=== PATIENT | female | born 1995 | race Two or more races ===

== ENCOUNTER → 2018-02-06 11:17 | Outpatient (CLI) | payer SELFPAY ==
[2018-02-06 12:00] LABS: Basophils % 0.4 % (0.1-2.0); Eosinophils # 0.3 K/mm3 (0.0-0.4); Eosinophils % 3.6 % (0.1-12.0); Hematocrit 40.2 % (37.0-47.0); Hemoglobin 13.5 g/dL (12.2-16.2); Lymphocytes # 1.7 K/mm3 (0.7-4.5); Lymphocytes % 17.7 K/mm3 (10-50); Mean Corpuscular HGB Conc 33.7 g/dL (31.8-35.4); Mean Corpuscular Hemoglobin 28.9 pg (27.0-31.2); Mean Corpuscular Volume 85.8 fl (81-99); Mean Platelet Volume 7.3 fl (7.4-10.4); Monocytes # 0.3 K/mm3 (0.1-1.0); Monocytes % 3.4 % (1.7-9.3); Neutrophils # 7.1 K/mm3 (1.8-7.8); Platelet Count 356 K/mm3 (142-424); Red Blood Count 4.69 M/mm3 (4.20-5.40); Red Cell Distribution Width 13.4 % (11.5-17.5); White Blood Count 9.4 K/mm3 (4.5-13.0)
[2018-02-06 12:06] LABS: Amphetamine/Metha Screen,Urine Negative ng/mL (<1000); Barbiturates Screen,Urine Negative ng/mL (<200); Benzodiazepines Screen,Urine Negative ng/mL (<200); Cannabinoid Screen,Urine Negative ng/mL (<50); Cocaine Screen,Urine Negative ng/mL (<300); Methadone Screen,Urine Negative ng/mL (<300); Opiate Screen,Urine Negative ng/mL (<300); Phencyclidine Screen,Urine Negative ng/mL (<25)
[2018-02-06 13:02] LABS: Thyroid Stimulating Hormone 2.18 uIU/ml (0.516-4.13)
[2018-02-07 08:23] LABS: HIV Screen 4th Generation wRfx Non Reactive (Non Reactive)
[2018-02-07 18:43] LABS: Hepatitis B Surface Antigen Negative (Negative); Rapid Plasma Reagin Ab Titer Non Reactive (NonRea<1:1); Rubella Antibodies, IgG 2.48 index (Immune >0.99)
== END ==
PROVIDERS: PCP Nurse Practitioner Family; Visit Provider Obstetrics & Gynecology
DX: Z34.90 Encounter for supervision of normal pregnancy, unspecified, unspecified trimester (principal)
CPT/HCPCS: 36415; 80305; 84443; 85025; 86592; 86703; 86762; 86850; 87340; G0432

== ENCOUNTER → 2018-03-16 15:19 | Outpatient (CLI) | payer SELFPAY ==
[2018-03-19 19:11] LABS: AFP Value 20.6 ng/mL (.); DIA Value 205.32 pg/mL (.); DSR (Second Trimester) 1 IN 10000 (.); Gestat. Age Based On As provided (.); OSBR Risk 1 IN 10000 (.); Results Report (.); hCG MoM 0.52 (.); hCG Value 27710 mIU/mL (.); uE3 MoM 1.67 (.); uE3 Value 0.93 ng/mL (.)
== END ==
PROVIDERS: PCP Nurse Practitioner Family; Visit Provider Obstetrics & Gynecology
DX: Z34.90 Encounter for supervision of normal pregnancy, unspecified, unspecified trimester (principal)
CPT/HCPCS: 36415; 82106

== ENCOUNTER → 2018-05-19 16:50 | Outpatient (CLI) | payer SELFPAY ==
[2018-05-19 18:12] LABS: Glucose 1 Hour 119 mg/dL (74-106)
== END ==
PROVIDERS: Visit Provider Obstetrics & Gynecology
DX: Z34.90 Encounter for supervision of normal pregnancy, unspecified, unspecified trimester (principal)
CPT/HCPCS: 36415; 82951

== ENCOUNTER → 2018-07-28 17:59 | Outpatient (CLI) | payer OTHER, SELFPAY | PROVIDERS: Visit Provider Obstetrics & Gynecology | DX: Z34.90 Encounter for supervision of normal pregnancy, unspecified, unspecified trimester (principal) | CPT/HCPCS: 86403 ==

== ENCOUNTER 2018-08-30 06:50 | Outpatient (CLI) | payer BC, SELFPAY ==
[2018-08-30 06:56] VITALS: BMI 27.4
[2018-08-30 07:04] LABS: Microscopic, Urine URINE MICROSCOPIC (MICROSCOPIC)
[2018-08-30 07:06] LABS: Appearance,Urine CLEAR (Clear); Bilirubin,Urine Negative (Negative); Blood, Urine 1+ (Negative); Color,Urine YELLOW (Yellow); Glucose,Urine (UA) Negative (Negative); Ketones,Urine Negative (Negative); Leukocyte Esterase,Urine Negative (Negative); Nitrate,Urine Negative (Negative); Protein,Urine Negative (Negative); Urobilinogen,Urine 0.2 EU/dl (0.2)
[2018-08-30 07:10] LABS: Amorphous Sediment,Urine Trace /lpf
[2018-08-30 07:17] VITALS: BP 129/74; PULSE 68; RESP 18; TEMP 36.6; O2SAT 97; BMI 25.8
[2018-08-30 08:47] LABS: Basophils % 0.3 % (0.1-2.0); Eosinophils # 0.1 K/mm3 (0.0-0.4); Eosinophils % 0.8 % (0.1-12.0); Hematocrit 38.6 % (37.0-47.0); Hemoglobin 13.2 g/dL (12.2-16.2); Lymphocytes % 18.5 % (10-50); Mean Corpuscular HGB Conc 34.4 g/dL (31.8-35.4); Mean Corpuscular Hemoglobin 28.9 pg (27.0-31.2); Mean Corpuscular Volume 84.1 fl (81-99); Mean Platelet Volume 6.9 fl (7.4-10.4); Monocytes # 0.6 K/mm3 (0.1-1.0); Monocytes % 5.4 % (1.7-9.3); Neutrophils # 7.9 K/mm3 (1.8-7.8); Platelet Count 298 K/mm3 (142-424); Red Blood Count 4.58 M/mm3 (4.20-5.40); Red Cell Distribution Width 14.8 % (11.5-17.5); White Blood Count 10.6 K/mm3 (4.8-10.8)
== END 2018-08-30 10:25 | disposition home or self-care (01) ==
LOC: OBOUT 06:52 → OB 06:52
PROVIDERS: PCP Family Medicine; Visit Provider Nurse Practitioner Obstetrics & Gynecology
DX: O60.03 Preterm labor without delivery, third trimester (principal); Z3A.39 39 weeks gestation of pregnancy
CPT/HCPCS: 59025; 81001; 85025; 86850; 96360

== ENCOUNTER 2018-08-30 23:34 | Inpatient (IN) ==
--- NOTE | 2018-08-31 06:36 | Progress Note ---
Internal Medicine - PN: Subj *Date: 08/31/18 *Time: 06:35 Interval history: This 23-year-old 1 para 0 AB 0 female was admitted around midnight with regular contractions and spontaneous rupture of membranes at home (amniosure positive). She has been laboring well, and her cervix is now completely effaced, 6-7 cm, with the presenting vertex at 0 station. An internal monitor has been placed. The patient does not wish an epidural at this time. Plan is for vaginal delivery. Exam Vital signs and Labs for Last 24 Hours: Temp Pulse Resp BP Pulse Ox 97.9 F 72 18 136/72 98 08/31/18 01:38 08/31/18 01:38 08/31/18 01:38 08/31/18 01:38 08/31/18 01:38 Laboratory Results - last 24 hr 08/30/18 23:50: Membrane Rupture Positive A I & O for Last 24 hours: Intake & Output 08/28/18 08/29/18 08/30/18 08/31/18 10:59 10:59 11:59 11:59 Weight 170 lb
--- NOTE | 2018-08-31 08:51 | Progress Note ---
Internal Medicine - PN: Subj *Date: 08/31/18 *Time: 08:51 Interval history: Cervix now completely effaced, 8 cm, with the presenting vertex at 0 station. There is been a few subtle decelerations. If they continue, will do an amnioinfusion. Exam Vital signs and Labs for Last 24 Hours: Temp Pulse Resp BP Pulse Ox 97.9 F 72 18 136/72 98 08/31/18 01:38 08/31/18 01:38 08/31/18 01:38 08/31/18 01:38 08/31/18 01:38 Laboratory Results - last 24 hr 08/30/18 23:50: Membrane Rupture Positive A I & O for Last 24 hours: Intake & Output 08/28/18 08/29/18 08/30/18 08/31/18 10:59 10:59 11:59 11:59 Weight 170 lb
--- NOTE | 2018-08-31 10:23 | Progress Note ---
Internal Medicine - PN: Subj *Date: 08/31/18 *Time: 10:23 Interval history: Cervix now completely effaced, 9 cm, with the presenting vertex at 0 station. Exam Vital signs and Labs for Last 24 Hours: Temp Pulse Resp BP Pulse Ox 98.4 F 70 18 123/57 L 100 08/31/18 08:00 08/31/18 08:00 08/31/18 08:00 08/31/18 08:00 08/31/18 08:00 Laboratory Results - last 24 hr 08/30/18 23:50: Membrane Rupture Positive A I & O for Last 24 hours: Intake & Output 08/28/18 08/29/18 08/30/18 08/31/18 10:59 10:59 11:59 11:59 Weight 170 lb
--- NOTE | 2018-08-31 15:13 | Procedure Note ---
- Delivery Note Delivery Date:: 08/31/18 Delivery Time:: 14:51 Anesthesia Type: None Was labor medically induced?: No Infant delivered prior to 39 weeks?: No Infant Gender: Male at 1 minute: 7 at 5 minutes: 9 Suction Catheter Type: Helen AF:: clear LAC or MLE?: MLE Delivery Procedure:: This 23-year-old 1, now para 1 female was admitted at 39-2/7 weeks with spontaneous rupture of membranes at home and irregular contractions. Her labor progressed gradually until at 9+ centimeters she required a small amount of IV Pitocin because of failure to progress. She then went steadily to completion at 1400 hrs. and delivered spontaneously, over a midline episiotomy, at 1451. There was no nuchal cord, nor was there any meconium. The baby's nasal and oropharynx were bulb suction, and the baby cried spontaneously on the perineum, as was delivered. The cord was clamped and cut, 3 vessels were noted to be within the cord, and cord blood was obtained. The cord pH is pending. The baby was handed into the arms of the attending RN, who assigned Apgars of 7 at 1 minute and 9 at 5 minutes to this 6 pound 2 ounce, 19.25 inch male , born at 1451. The baby was recovered in excellent condition. The placenta delivered spontaneously, intact, at 1454, making the total time in labor 13 hours 54 minutes. The uterus was inspected and was felt to be clean, and was involuting well, with IV Pitocin running. There were no lacerations or extensions of the midline episiotomy, which was closed in the usual fashion, in layers, with 2-0 Vicryl (after local infusion of 10 cc of 1% lidocaine). The rectovaginal septum was inspected and was in intact at the close of the procedure. The sponge and needle counts correct. The estimated blood loss was 350 cc. The patient tolerated the procedure well, and was recovered in excellent condition. Her blood type was O+. Her rubella titer is immune. She plans to breast-feed. Placental Delivery Description: Spontaneous
--- NOTE | 2018-08-31 16:22 | Progress Note ---
Internal Medicine - PN: Subj *Date: 08/31/18 *Time: 16:21 Interval history: Date of delivery. Vital signs stable. Lochia normal. Uterine fundus involuting well. Perineum intact. Impression: Stable. Exam Vital signs and Labs for Last 24 Hours: Temp Pulse Resp BP Pulse Ox 98.4 F 70 18 123/57 L 100 08/31/18 08:00 08/31/18 08:00 08/31/18 08:00 08/31/18 08:00 08/31/18 08:00 Laboratory Results - last 24 hr 08/30/18 23:50: Membrane Rupture Positive A 08/31/18 15:09: Cord ABG pH 7.28 L I & O for Last 24 hours: Intake & Output 08/29/18 08/30/18 08/31/18 09/01/18 10:59 11:59 11:59 11:59 Weight 170 lb
[2018-09-01 05:52] LABS: Hematocrit 32.5 % (37.0-47.0); Hemoglobin 11.2 g/dL (12.2-16.2)
--- NOTE | 2018-09-01 07:20 | Progress Note ---
Internal Medicine - PN: Subj *Date: 09/01/18 *Time: 07:19 Interval history: This is day #1. The patient is afebrile. Vital signs stable. Lochia normal. Uterine fundus involuting well. Abdomen soft. Nursing well. Episiotomy healing well. The patient does not wish the baby to be circumcised. Hemoglobin 11.2 g, but clinically stable. Impression: Stable. Exam Vital signs and Labs for Last 24 Hours: Temp Pulse Resp BP Pulse Ox 98.4 F 70 18 123/57 L 100 08/31/18 08:00 08/31/18 08:00 08/31/18 08:00 08/31/18 08:00 08/31/18 08:00 Laboratory Results - last 24 hr 08/31/18 15:09: Cord ABG pH 7.28 L 09/01/18 05:25: Hgb 11.2 L, Hct 32.5 L I & O for Last 24 hours: Intake & Output 08/29/18 08/30/18 08/31/18 09/01/18 10:59 11:59 11:59 11:59 Weight 170 lb
[2018-09-01 20:55] VITALS: BP 109/58
--- NOTE | 2018-09-02 10:05 | Discharge Summary ---
General - General Admission date:: 08/31/18 Discharge date: 09/02/18 HPI HPI: She is a 23-year-old 1 now para 1 who is 39 and 2 weeks gestational age. She came in in active labor. Hospital Course Hospital Course: She progressed to full dilation and delivered spontaneously a liveborn male child at 2:51 PM in the afternoon of August 31, 2018. The baby was a liveborn male child weighing 6 pounds 2 ounces and was 19-1/4 inches long. He had Apgars of 7 at 1 minute and 9 at 5 minutes. She has done well and has remained afebrile throughout her hospitalization. She is eating and drinking and ambulate in. She is breast- feeding. She has O+ blood, she is rubella immune and was group B streptococcus negative. She is discharged home to follow-up with Dr. Pierson in 3 weeks time. She will continue with her vitamins and iron. Objective Vital signs: Temp Pulse Resp BP Pulse Ox 97.9 F 61 16 109/58 L 99 09/01/18 20:00 09/01/18 20:00 09/01/18 20:00 09/01/18 20:00 09/01/18 20:00 no acute distress DS: Diagnosis - Discharge Diagnosis (1) Normal delivery at term Status: Acute Discharge Plan - Patient Discharge Instructions ACTIVITY: No heavy lifting DIET: continue same diet Patient Instructions: DI for Hemorrhage, DI for Depression, [facility] Post Discharge Instructions - Follow up Plan Follow up with: Kavin Pierson MD [Staff Physician] - Disposition: Home, Self-Fci Medications: Home Medications Medication Instructions Recorded Confirmed Type vit 123-iron 28 mg-folic 1 cap PO DAILY 02/06/18 08/31/18 History acid 800 [id number] 235 mg capsule Prescriptions/Medication Reconciliation: Continue vit 123-iron 28 mg-folic acid 800 [id number] 235 mg capsule 1 cap PO DAILY
== END 2018-09-02 11:33 | disposition home or self-care (01) | DRG 807 ==
LOC: OBOUT 23:34 → OB 23:35
PROVIDERS: ADMIT Nurse Practitioner Obstetrics & Gynecology; ATTEND Obstetrics & Gynecology
CPT/HCPCS: C1758

== ENCOUNTER → 2019-02-01 15:18 | Outpatient (CLI) | payer BC, SELFPAY ==
--- NOTE | 2019-02-01 15:26 | US_ITS ---
US transvaginal HISTORY: Right lower quadrant pain, pelvic pain ORDERING PHYSICIAN: Kathia Beach APRN PATIENT AGE: 23 years Comparison: None FINDINGS: The uterus is 8 x 3.4 x 4.4 cm with a combined endometrial thickness of 12 mm. No uterine mass evident. The left ovary has an unremarkable appearance at 3 x 2 cm. The right ovary measures 3 x 2.5 cm and contains a 1.8 cm cyst. No cul-de-sac fluid. IMPRESSION: 1. Endometrial thickness upper limits of normal. 2. 18 mm right ovarian follicle otherwise negative pelvic ultrasound
== END ==
PROVIDERS: PCP Family Medicine; Visit Provider Nurse Practitioner Family
DX: R10.2 Pelvic and perineal pain (principal)
CPT/HCPCS: 76830

== ENCOUNTER → 2019-03-11 14:30 | Outpatient (CLI) | payer BC, SELFPAY ==
--- NOTE | 2019-03-11 14:34 | US_ITS ---
PROCEDURE: US TRANSVAGINAL CLINICAL INDICATION: PELVIC PAIN Right-sided pelvic pain COMPARISON: US TRANSVAGINAL from 02/01/2019 FINDINGS: The uterus is retroverted measuring 6 x 3 x 4.7 cm. Combined endometrial thickness is 5 mm. Right ovary is 3 x 2 cm. Left ovary is 2.6 x 1.6 cm. No adnexal mass. There is bilateral ovarian blood flow. No cul-de-sac fluid. IMPRESSION: Retroverted uterus otherwise negative pelvic ultrasound Dictated by: German Nix MD 03/11/2019 17:35 Electronically signed by German Nix MD in [facility] 03/11/2019 17:35
== END ==
PROVIDERS: PCP Family Medicine; Visit Provider Obstetrics & Gynecology
DX: R10.2 Pelvic and perineal pain (principal)
CPT/HCPCS: 76830

== ENCOUNTER → 2021-02-20 09:51 | Outpatient (CLI) | payer BC, SELFPAY ==
[2021-02-20 11:50] LABS: HCG,Quantitative 88965 mIU/ml (0-5.42)
== END ==
PROVIDERS: Visit Provider Nurse Practitioner Obstetrics & Gynecology
DX: N92.6 Irregular menstruation, unspecified (principal)
CPT/HCPCS: 36415; 84702

== ENCOUNTER → 2021-03-07 12:04 | Outpatient (CLI) | payer BC, SELFPAY ==
[2021-03-07 12:52] LABS: Basophils % 0.2 % (0.1-2.0); Eosinophils # 0.1 K/mm3 (0.0-0.4); Eosinophils % 0.8 % (0.1-12.0); Hematocrit 40.7 % (37.0-47.0); Hemoglobin 13.5 g/dL (12.2-16.2); Lymphocytes # 2.4 K/mm3 (0.7-4.5); Mean Corpuscular HGB Conc 33.2 g/dL (31.8-35.4); Mean Corpuscular Hemoglobin 29.7 pg (27.0-31.2); Mean Corpuscular Volume 89.3 fl (81-99); Mean Platelet Volume 7.2 fl (7.4-10.4); Monocytes # 0.5 K/mm3 (0.1-1.0); Monocytes % 3.8 % (1.7-9.3); Neutrophils # 8.9 K/mm3 (1.8-7.8); Neutrophils % 75.1 % (37.0-80.0); Platelet Count 332 K/mm3 (142-424); Red Blood Count 4.56 M/mm3 (4.20-5.40); White Blood Count 11.8 K/mm3 (4.8-10.8)
[2021-03-08 05:15] LABS: HIV Screen 4th Generation wRfx Non Reactive (Non Reactive)
[2021-03-08 06:46] LABS: Hepatitis B Surface Antigen Negative (Negative); Hepatitis C Antibody <0.1 s/co ratio (0.0-0.9)
[2021-03-08 08:32] LABS: HSV 2 IgG, Type Spec <0.91 index (0.00-0.90); Rubella Antibodies, IgG 2.35 index (Immune >0.99)
[2021-03-08 11:13] LABS: Rapid Plasma Reagin Ab Titer Non Reactive (NonRea<1:1)
== END ==
PROVIDERS: Visit Provider Nurse Practitioner Obstetrics & Gynecology
DX: Z34.90 Encounter for supervision of normal pregnancy, unspecified, unspecified trimester (principal)
CPT/HCPCS: 36415; 85025; 86592; 86695; 86703; 86762; 86790; 86850; 87340; 87380; G0432

== ENCOUNTER → 2021-03-14 07:54 | Outpatient (CLI) | payer BC, SELFPAY ==
--- NOTE | 2021-03-14 07:55 | US_ITS ---
PROCEDURE: US OB <= 14 WEEKS FETUS CLINICAL INDICATION: for dates COMPARISON: No exams were available for comparison FINDINGS: An intrauterine gestational sac is present with a pole with a crown-rump length of 5.22cm correlating to gestational age of 12weeks. heart tones are present with an FHR of 160bpm. Yolk sac is noted. Placenta is forming anteriorly. There is a 2 cm left corpus luteum cyst. No cul-de-sac fluid demonstrated. IMPRESSION: Live IUP at 12 weeks. Estimated due date by Ultrasound is 09/26/2021 Dictated by: German Nix MD 03/14/2021 18:25 German Nix MD in [facility] 03/14/2021 18:25
== END ==
PROVIDERS: PCP Family Medicine; Visit Provider Nurse Practitioner Obstetrics & Gynecology
DX: Z34.90 Encounter for supervision of normal pregnancy, unspecified, unspecified trimester (principal)
CPT/HCPCS: 76801

== ENCOUNTER 2021-05-05 22:35 | Emergency (ER) | payer BC, SELFPAY ==
[2021-05-05 22:37] VITALS: BP 127/56; PULSE 67; RESP 18; TEMP 36.8; O2SAT 99; BMI 25.8
--- NOTE | 2021-05-05 22:52 | US_ITS ---
PROCEDURE INFORMATION: Exam: US After First Trimester, Transabdominal Exam date and time: 05/05/2021 10:52 PM Age: 25 years old Clinical indication: Lmp or gestational age (in weeks): 19 weeks; Other: Some cramping and some spotting seen tonight; ; Additional info: Cramping, bleeding. TECHNIQUE: Imaging protocol: Real-time transabdominal obstetrical ultrasound of the maternal pelvis and a second or third trimester with image documentation. COMPARISON: US OB <= 14 WEEKS FETUS 03/14/2021 8:20 AM FINDINGS: Gestation: Single live intrauterine gestation. heart rate: 144 bpm. presentation: Placenta: Unremarkable. No subchorionic bleed. Placenta is anterior low lying without previa. Amniotic fluid: Amniotic fluid is normal for gestational age. ANATOMY: midline falx: Normal cerebellum: Normal lateral ventricles: Normal cisterna magna: Normal choroid plexus: Normal upper lip and nose: Not visualized heart four-chamber view, heart size and position: Normal kidneys: Normal stomach: Normal urinary bladder: Normal spine: Normal Umbilical cord insertion site into the abdomen: Normal Umbilical cord vessel number: Three-vessel cord arms and hands: Normal legs and feet: Normal external genitalia: Not imaged BIOMETRY: Estimated due date (AUA): 09/26/2021 Gestational age (AUA): 19 weeks 4 days +/-2 weeks Estimated weight: 298 +/-43 g Estimated weight percentile: 51 Biparietal diameter (BPD): 4.5 cm Head circumference (HC): 16 cm MATERNAL: Uterus: Unremarkable. Cervix: Unremarkable. Right adnexa: Ovary is obscured by overlying bowel gas. Left adnexa: Ovary is obscured by overlying bowel gas. IMPRESSION: Single live intrauterine gestation 19 weeks 4 days +/-2 weeks with positive cardiac activity and normal survey.
[2021-05-06 00:26] LABS: Microscopic, Urine URINE MICROSCOPIC (MICROSCOPIC)
[2021-05-06 00:28] LABS: Appearance,Urine CLEAR (Clear); Bilirubin,Urine Negative (Negative); Blood, Urine 2+ (Negative); Color,Urine YELLOW (Yellow); Glucose,Urine (UA) Negative (Negative); Ketones,Urine Negative (Negative); Leukocyte Esterase,Urine Negative (Negative); Nitrate,Urine Negative (Negative); Protein,Urine Negative (Negative); Specific Gravity, Urine 1.015 (1.005-1.030); Urobilinogen,Urine 0.2 EU/dl (0.2)
[2021-05-06 01:27] VITALS: BP 122/60; PULSE 68; RESP 18; TEMP 36.8; O2SAT 100
--- NOTE | 2021-05-06 01:34 | [facility].EDGENADL ---
ED Disposition Clinical Impression: Vaginal bleeding before 22 weeks gestation Disposition: Home, Self-Care Condition on Discharge: Good Instructions: DI for Urinary Tract Infection (UTI), DI for Urinary Tract Infection in Children Additional Instructions: Please continue to monitor at home for any concerning symptoms such as worsening bleeding, abdominal pain, nausea, vomiting, and other. If your condition worsens or any other concerns arise, please return to the emergency department. Otherwise, please follow-up at your scheduled follow-up appointment. Referrals: Ramone Burton MD [Primary Care Provider] - - Critical Care Critical Care Time: No Attestation: On 05/05/21, the high probability of a clinically significant, sudden or life threatening deterioration of the following system(s) required my full and direct attention, intervention and personal management. The time I documented below is in addition to time spent performing reported procedures but includes the following listed in this critical care notation. Medical Decision Making - Hair Inquiry Pt receiving controlled substance: No Vital Signs: 05/05/21 22:37 05/06/21 01:27 Temperature 98.3 F 98.2 F Temperature Source Oral Pulse Rate 68 Pulse Rate [Apical] 67 Respiratory Rate 18 18 Blood Pressure 122/60 Blood Pressure [Right Arm] 127/56 L Blood Pressure Mean [Right Arm] 79 Blood Pressure Source [Right Arm] Automatic Cuff Blood Pressure Position [Right Arm] Sitting 02 Sat by Pulse Oximetry 99 Oxygen Delivery Method Room Air Room Air - Lab Data Lab Results 05/05/21 22:45: Urine Color Yellow, Urine Appearance Clear, Urine pH 6.0, Ur Specific Edgar 1.015, Urine Protein Negative, Urine Glucose (UA) Negative, Urine Ketones Negative, Urine Blood 2+, Urine Nitrate Negative, Urine Bilirubin Negative, Urine Urobilinogen 0.2, Ur Leukocyte Esterase Negative, Urine RBC 5-10, Ur Squamous Epith Cells 10-20 - US Data US Images: Other (Transvaginal/) ED US Reviewed: Yes: I have reviewed the patient's US results, I have viewed radiologist's interpretation Findings Narrative: FINDINGS: Gestation: Single live intrauterine gestation. heart rate: 144 bpm. presentation: Placenta: Unremarkable. No subchorionic bleed. Placenta is anterior low lying without previa. Amniotic fluid: Amniotic fluid is normal for gestational age. ANATOMY: midline falx: Normal cerebellum: Normal lateral ventricles: Normal cisterna magna: Normal choroid plexus: Normal upper lip and nose: Not visualized heart four-chamber view, heart size and position: Normal kidneys: Normal stomach: Normal urinary bladder: Normal spine: Normal Umbilical cord insertion site into the abdomen: Normal Umbilical cord vessel number: Three-vessel cord arms and hands: Normal legs and feet: Normal external genitalia: Not imaged BIOMETRY: Estimated due date (AUA): 09/26/2021 Gestational age (AUA): 19 weeks 4 days +/-2 weeks Estimated weight: 298 +/-43 g Estimated weight percentile: 51 Biparietal diameter (BPD): 4.5 cm Head circumference (HC): 16 cm MATERNAL: Uterus: Unremarkable. Cervix: Unremarkable. Right adnexa: Ovary is obscured by overlying bowel gas. Left adnexa: Ovary is obscured by overlying bowel gas. IMPRESSION: Single live intrauterine gestation 19 weeks 4 days +/-2 weeks with positive cardiac activity and normal survey. Medical Decision Narrative: Patient is a 25yo F currently 19 weeks presenting for chief complaint of mild left lower quadrant abdominal pain associated with trace vaginal bleeding. Differential diagnosis includes, but is not limited to, placental abruption, placenta previa, vasa previa, urinary tract infection, bleeding due to recent exam with ultrasound. On initi
== END 2021-05-06 01:46 | disposition home or self-care (01) ==
PROVIDERS: Emergency Provider Emergency Medicine; PCP Nurse Practitioner Obstetrics & Gynecology
DX: O46.8X2 Other antepartum hemorrhage, second trimester (principal); Z3A.22 22 weeks gestation of pregnancy
CPT/HCPCS: 76805; 81001; 99282

== ENCOUNTER → 2021-05-11 09:59 | Outpatient (CLI) | payer BC, SELFPAY ==
--- NOTE | 2021-05-11 10:05 | US_ITS ---
PROCEDURE: US OB /MATERNAL DETAIL CLINICAL INDICATION: 20 weeks gestation COMPARISON: US US OB >= 14 WEEKS FETUS from 05/05/2021 FINDINGS: There is a single live fetus present in breech presentation. Cervix is closed measuring three cm in length. The placenta is anterior in implantation and grade 1. Complete survey performed and was unremarkable on the submitted images as in PACS. No discrete anomalies identified on survey imaging by technologist. Active fetus. Three-vessel cord with satisfactory umbilical cord insertion. 4- chamber heart noted. Survey of brain & ventricles Unremarkable. Face and neck survey unremarkable. Diaphragm and chest views unremarkable. Abdomen: Both kidneys noted and unremarkable. Stomach noted and satisfactory. Spine: Survey of the spine satisfactory with no anomalies identified nor imaged. Both arms and legs noted. Amniotic Fluid: Adequate. Maternal adnexa: No significant findings. Measurements: Average ultrasound age 20weeks 1day. Gestational Age 20weeks 1day Estimated due date by ultrasound age 0409/27/2021. Estimated weight 333g BPD = 20weeks 2days OFD = 20weeks 5days HC = 19weeks 6days AC = 20weeks 1day FL = 20weeks 2days Growth Percentile= 36% Heart Rate = 143bpm Cerebellum = 20weeks 4days Humerus = 20weeks 6days HC/AC is 1.16 CI is 0.76 FL/BPD is 0.7 FL/AC is 0.22 IMPRESSION: Live IUP in breech presentation with an average ultrasound age of 20 weeks and 1 day. No obvious anomalies. Please see above for detail Dictated by: German Nix MD 05/11/2021 18:11 German Nix MD in [facility] 05/11/2021 18:11
== END ==
PROVIDERS: PCP Family Medicine; Visit Provider Nurse Practitioner Obstetrics & Gynecology
DX: Z36.0 Encounter for antenatal screening for chromosomal anomalies (principal)
CPT/HCPCS: 76811

== ENCOUNTER 2021-06-22 13:55 | Emergency (ER) | payer BC, SELFPAY ==
[2021-06-22 15:50] VITALS: BP 110/50; PULSE 77; RESP 18; TEMP 36.7; O2SAT 99; BMI 24.9
[2021-06-22 16:16] LABS: UTC Strep Screen (Rapid) Positive (Negative)
--- NOTE | 2021-06-22 16:42 | HMH.EDUTC ---
[facility] [place] Disposition Clinical Impression: Strep throat Disposition: Home, Self-Care Condition on Discharge: Good Instructions: DI for Strep Throat, Strep Throat Additional Instructions: Drink plenty of fluids. Take tylenol for pain or fever. Take the medications as directed. Follow up with your regular doctor. GO TO THE ER FOR ANY WORSENING SYMPTOMS Throw your tooth brush away and get a new one. Prescriptions: Amoxicillin [Amoxicillin 500mg Tab] 500 mg PO TID 10 Days #30 tab Transmission Status: Pending to [email or web address] #[id number] Referrals: Ilir Gama MD [Primary Care Provider] - Time of Disposition: 16:58 Medical Decision Making - Medical Records Medical records reviewed: No: I reviewed the patient's medical records. - Hair Inquiry Pt receiving controlled substance: No Vital Signs: 06/22/21 15:50 Temperature 98.1 F Temperature Source Oral Pulse Rate [Right Brachial] 77 Respiratory Rate 18 Blood Pressure [Right Arm] 110/50 L Blood Pressure Mean [Right Arm] 70 Blood Pressure Source [Right Arm] Automatic Cuff Blood Pressure Position [Right Arm] Sitting 02 Sat by Pulse Oximetry 99 Oxygen Delivery Method Room Air - Lab Data Lab results reviewed: Yes: I reviewed the patient's lab results. Lab Results 06/22/21 16:02: Strep Scn Rapid Clinic Positive A [facility] [place] HPI - General Stated complaint: sore throat, cough, runny nose, headache Time Seen by Provider: 06/22/21 16:43 Mode of Arrival: Ambulatory Source of Information: Patient Limitations: No Limitations Description of Symptoms (Recalled from Triage Doc. by RN): PATIENT C/O SORE THROAT, SNEEZING, COUGH AND RUNNY NOSE X 4 DAYS HEENT Symptoms (Recalled from RN notes): Yes Resp Symptoms (Recalled from RN notes): Yes Skin Symptoms (Recalled from RN notes): No MS Symptoms (Recalled from RN notes): No Functional Status (Recalled from RN notes): WNL - History of Present Illness Provider Complaint: She states that she has had a sore throat and felt bad for the past 3 days. She is . She denies any abdominal pain or back pain. She denies any vaginal bleeding. - Related Data Previous Rx's Medication Instructions Recorded famotidine 20 mg tablet 20 mg PO DAILY #30 tab 03/07/21 prenat.vits,pato,lon-pxui-icezy 1 tab PO DAILY #30 tab 03/07/21 ferrous sulfate 325 mg (65 mg 325 mg PO DAILY #30 tab 05/04/21 iron) tablet Amoxicillin [Amoxicillin 500mg Tab] 500 mg PO TID 10 Days #30 tab 06/22/21 Allergies Allergy/AdvReac Type Severity Reaction Status Date / Time No Known Allergies Allergy Verified 05/30/21 10:29 - Worker's Comp Is this a Worker's Comp case?: No H History - Hepatitis A Screen Drug use history?: No High risk sexual behaviors?: No History of sexually transmitted infection?: No Currently employed?: No Childcare worker?: No Do you have indoor plumbing?: Yes Do you have electricity?: Yes Attestation statement:: This patient has been screened for Hepatitis A risk factors. I have reviewed the patient's past medical history: Yes Other Surgeries: Yes: No Previous Surgery. No: Amputation: No Fractures: No - Social History Smoking Status: Never smoker Alcohol Intake: never Alcohol Intake Frequency:: other Substance Use Type: denies use Occupational Status: unemployed Family Hx:: Diabetes Comment: 08/31/2018 @ 1451--- , 6LB 2OZ, 19 1/4 INCH, MALE. 7/9 ROS Obtained: Yes All systems reviewed & no additional complaints - Constitutional Constitutional: Denies chills, Denies fever(s), Reports poor appetite, Reports malaise - Eyes Eyes: Denies eye discharge - ENT Ears, Nose, Mouth, and Throat: Reports as per HPI - Cardiovascular Cardiovascular: Denies chest pain - Respiratory Respiratory: Denies chest congestion, Reports cough, Denies dyspnea, Denies stridor, Denies wheezing - Gastrointestinal Gastrointestingal: Reports: nausea. Denies: abdominal pain, diar
[2021-06-22 17:12] VITALS: BP 110/50; PULSE 77; RESP 18; TEMP 36.7; O2SAT 99
== END 2021-06-22 17:15 | disposition home or self-care (01) ==
PROVIDERS: Emergency Provider Nurse Practitioner Family; PCP Internal Medicine Adolescent Medicine
DX: J02.0 Streptococcal pharyngitis (principal); Z3A.26 26 weeks gestation of pregnancy
CPT/HCPCS: 87880; 99202; G0463

== ENCOUNTER 2021-06-24 09:52 | Emergency (ER) | payer BC, SELFPAY ==
[2021-06-24 10:15] VITALS: BP 115/70; PULSE 89; RESP 14; TEMP 37.1; O2SAT 98; BMI 26.6
[2021-06-24 10:26] LABS: UTC Influenza A Antigen Negative (Negative)
[2021-06-24 10:27] LABS: UTC Influenza B Antigen Negative (Negative)
--- NOTE | 2021-06-24 10:47 | HMH.EDUTC ---
[facility] [place] Clinical Impression: Strep throat, Bronchitis Disposition: Home, Self-Care Condition on Discharge: Good Instructions: Acute Bronchitis, DI for Strep Throat, DI for Acute Bronchitis Additional Instructions: Drink plenty of fluids. Take tylenol for pain or fever. Take the medications as directed. Follow up with your regular doctor. GO TO THE ER FOR ANY WORSENING SYMPTOMS Quarantine until you know the results of your covid-19 test. If it is positive, the health department should call you and give you further instructions about your length of Quarantine and other things. Notify your school or workplace of your results and follow their instructions regarding return to work/school. Prescriptions: Albuterol Sulfate [Albuterol Sulfate Hfa] 2 puffs IH Q6HP PRN 30 Days #1 each PRN Reason: Shortness Of Breath Transmission Status: Received by [id number] Guaifenesin/Dextromethorphan [Guaifenesin-Dm 100-10 mg/5 ml] 5 ml PO Q6HP PRN #240 ml PRN Reason: Cough Transmission Status: Received by [id number] Referrals: Ilir Gama MD [Primary Care Provider] - Time of Disposition: 11:24 Medical Decision Making - Medical Records Medical records reviewed: No: I reviewed the patient's medical records. - Hair Inquiry Pt receiving controlled substance: No Vital Signs: 06/24/21 10:15 06/24/21 11:31 Temperature 98.7 F 98.7 F Temperature Source Oral Pulse Rate 89 Pulse Rate [Left] 89 Respiratory Rate 14 14 Blood Pressure 115/70 Blood Pressure [Right Arm] 115/70 Blood Pressure Mean [Right Arm] 85 02 Sat by Pulse Oximetry 98 - Lab Data Lab results reviewed: Yes: I reviewed the patient's lab results. Lab Results 06/24/21 10:16: Chlamy pneumoniae PCR Not detected, Adenovirus (PCR) Not detected, B. pertussis DNA (PCR) Not detected, Coronavirus OC43 (PCR) Not detected, Coronavirus HKU1 (PCR) Not detected, Coronavirus 229E (PCR) Not detected, SARS-CoV-2 (PCR) Not detected, Coronavirus NL63 (PCR) Not detected, Human Metapneumovir PCR Not detected, Influenza A (H1) PCR Not detected, Influ A (H1N1/09) PCR Not detected, Influenza A (H3) PCR Not detected, Influenza Type A (PCR) Not detected, Influenza Type B (PCR) Not detected, M. pneumoniae (PCR) Not detected, Parainfluenza 1 (PCR) Not detected, Parainfluenza 2 (PCR) Not detected, Parainfluenza 3 (PCR) Not detected, Parainfluenza 4 (PCR) Not detected, RSV (PCR) Not detected, Entero/Rhino (PCR) Not detected 06/24/21 10:19: Influenza Type A Ag Negative, Influenza Type B Ag Negative [facility] [place] HPI - General Stated complaint: sore throat, cough, h/a Time Seen by Provider: 06/24/21 10:49 Mode of Arrival: Ambulatory Source of Information: Patient Limitations: No Limitations Description of Symptoms (Recalled from Triage Doc. by RN): pt c/o a sore throat, JENKINS, L ear ache, and lung tightness with coughing. pt tested positive for strep on new years ever. HEENT Symptoms (Recalled from RN notes): Yes (JENKINS, sore throat and L ear ache) Resp Symptoms (Recalled from RN notes): Yes (cough) Skin Symptoms (Recalled from RN notes): No MS Symptoms (Recalled from RN notes): No Functional Status (Recalled from RN notes): wnl - History of Present Illness Provider Complaint: She is here with complaints of chest congestion and chest tightness. She was diagnosed with strep throat 2 days ago. She is still having sore throat also. She has been taking the antibiotics as directed. She is . - Related Data Previous Rx's Medication Instructions Recorded famotidine 20 mg tablet 20 mg PO DAILY #30 tab 03/07/21 prenat.vits,pato,rrg-rzwd-kynzd 1 tab PO DAILY #30 tab 03/07/21 ferrous sulfate 325 mg (65 mg 325 mg PO DAILY #30 tab 05/04/21 iron) tablet Amoxicillin [Amoxicillin 500mg Tab] 500 mg PO TID 10 Days #30 tab 06/22/21 Albuterol Sulfate [Albuterol 2 puffs IH Q6HP PRN 30 Days #1 each 06/24/21 Sulfate Hfa] Guaifenesin/Dextromethorphan 5 m
[2021-06-24 11:31] VITALS: BP 115/70; PULSE 89; RESP 14; TEMP 37.1
[2021-06-24 14:25] LABS: Adenovirus,PCR Not Detected (NotDetected); Bordetella Pertussis Not Detected (NotDetected); Chlamydophila Pneumoniae, PCR Not Detected (NotDetected); Coronavirus 19, PCR Not Detected (NotDetected); Coronavirus 229E Not Detected (NotDetected); Coronavirus NL63 Not Detected (NotDetected); Coronavirus OC43 Not Detected (NotDetected); Coronovirus HKU1,PCR Not Detected (NotDetected); Human Metapneumovirus Not Detected (NotDetected); Influenza A, PCR Not Detected (NotDetected); Influenza AH1, 2009 Not Detected (NotDetected); Influenza AH1, PCR Not Detected (NotDetected); Influenza AH3,PCR Not Detected (NotDetected); Influenza B, PCR Not Detected (NotDetected); Mycoplasma Pneumoniae, PCR Not Detected (NotDetected); Parainfluenza 1, PCR Not Detected (NotDetected); Parainfluenza 2, PCR Not Detected (NotDetected); Parainfluenza 3, PCR Not Detected (NotDetected); Parainfluenza 4, PCR Not Detected (NotDetected); Respiratory Syncytial Virus Not Detected (NotDetected); Rhinovirus/Enterovirus Not Detected (NotDetected)
== END 2021-06-24 11:36 | disposition home or self-care (01) ==
PROVIDERS: Emergency Provider Nurse Practitioner Family; PCP Internal Medicine Adolescent Medicine
DX: J02.0 Streptococcal pharyngitis (principal); J20.9 Acute bronchitis, unspecified; Z20.822 Contact with and (suspected) exposure to COVID-19
CPT/HCPCS: 87581; 87632; 87798; 87804; 99202; C9803; G0463; U0003; U0005

== ENCOUNTER → 2021-07-10 09:44 | Outpatient (CLI) | payer BC, SELFPAY ==
[2021-07-10 10:19] LABS: Glucose,Fasting 91 mg/dl (74-100)
[2021-07-10 11:44] LABS: Glucose 1 Hour 90 mg/dL (74-100)
== END ==
PROVIDERS: Visit Provider Nurse Practitioner Obstetrics & Gynecology
DX: Z34.90 Encounter for supervision of normal pregnancy, unspecified, unspecified trimester (principal)
CPT/HCPCS: 36415; 82951

== ENCOUNTER 2021-07-14 11:00 | Emergency (ER) | payer BC, SELFPAY ==
[2021-07-14 13:09] VITALS: BP 112/88; PULSE 131; RESP 19; TEMP 37; O2SAT 100; BMI 28.5
--- NOTE | 2021-07-14 13:12 | HMH.EDUTC ---
[facility] [place] Clinical Impression: COVID Disposition: Home, Self-Care Condition on Discharge: Good Instructions: DI for COVID-19 (Suspected or Confirmed ) Additional Instructions: covid swab was sent to lab, call tomorrow for results. self isolate until test results are known to be negative No sign of a bacterial infection. Likely viral. Viruses can take 7-14 days to run their course. Nasal saline and bulb syringe or nose Charlette to remove nasal drainage to help with nasal congestion. Hard to eat, drink, sleep with nasal congestion so important to keep this cleaned out. Monitor temp. Tylenol or Motrin as needed for pain or fever Encourage fluids, water, Gatorade, Powerade, Pedialyte if /toddler/child Warm salt water gargles Warm fluids Sore throat lozenges Sleep elevated Humidifier/vaporizer Follow-up immediately for new or worsening symptoms or no noticeable improvement over the next 48-72 hours. Referrals: Wen Estrada MD [Primary Care Provider] - Time of Disposition: 13:14 Medical Decision Making - Hair Inquiry Pt receiving controlled substance: No Vital Signs: 07/14/21 13:09 Temperature 98.6 F Temperature Source Oral Pulse Rate [Left] 131 H Respiratory Rate 19 Blood Pressure [Right Arm] 112/88 Blood Pressure Mean [Right Arm] 96 02 Sat by Pulse Oximetry 100 Orders (Tests/Meds): ORDERS Category Date Time Status Covid-19 Nasal PCR ([facility]) Routine Lab 07/14/21 12:10 Received - Physician Consults Physician Consulted: ashley Time: 13:13 Reason -: Other Comment/Response: symptom mangement [facility] [place] - General Chief complaint: [facility]gent [facility] Stated complaint: 28 weeks preg. covid pos at home test, symptoms Time Seen by Provider: 07/14/21 13:12 Mode of Arrival: Ambulatory Source of Information: Patient Limitations: No Limitations Description of Symptoms (Recalled from Triage Doc. by RN): pt c/o a sore throat, cough, diarrhea, and congestion x2 days. pt is 28 wks . pt had a positive at home covid test. HEENT Symptoms (Recalled from RN notes): Yes (sore throat and congestion) Resp Symptoms (Recalled from RN notes): Yes (cough) Skin Symptoms (Recalled from RN notes): No MS Symptoms (Recalled from RN notes): No Functional Status (Recalled from RN notes): wnl - History of Present Illness Provider Complaint: 25 yr old female c/o a sore throat, cough, diarrhea, and congestion x2 days. pt is 28 wks . pt had a positive at home covid test. - Related Data Previous Rx's Medication Instructions Recorded famotidine 20 mg tablet 20 mg PO DAILY #30 tab 03/07/21 ferrous sulfate 325 mg (65 mg 325 mg PO DAILY #30 tab 07/11/21 iron) tablet prenat.vits,pato,zof-jrks-whvlf 1 tab PO DAILY #30 tab 07/11/21 Allergies Allergy/AdvReac Type Severity Reaction Status Date / Time No Known Allergies Allergy Verified 07/04/21 09:27 - Worker's Comp Is this a Worker's Comp case?: No [facility] History - Hepatitis A Screen Drug use history?: No High risk sexual behaviors?: No History of sexually transmitted infection?: No Currently employed?: No Childcare worker?: No Do you have indoor plumbing?: Yes Do you have electricity?: Yes Attestation statement:: This patient has been screened for Hepatitis A risk factors. I have reviewed the patient's past medical history: Yes Other Surgeries: Yes: No Previous Surgery. No: Amputation: No Fractures: No - Social History Smoking Status: Never smoker Alcohol Intake: never Alcohol Intake Frequency:: other Substance Use Type: denies use Occupational Status: unemployed Family Hx:: Diabetes Comment: 08/31/2018 @ 1451--- , 6LB 2OZ, 19 1/4 INCH, MALE. 7/9 ROS Obtained: Yes Systems reviewed as appropriate & no additional complaints - Constitutional Constitutional: Reports system reviewed and no additional complaints, except as docu, Denies chills, Denies fever(s) - Eyes Eyes: Reports system reviewed and
[2021-07-14 13:33] VITALS: BP 112/88; PULSE 131; RESP 19; TEMP 37
[2021-07-14 14:19] LABS: Strep Scrn Group A (Rapid) Negative (Negative)
== END 2021-07-14 13:33 | disposition home or self-care (01) ==
PROVIDERS: Emergency Provider Nurse Practitioner Family; PCP Family Medicine
DX: U07.1 COVID-19 (principal); Z3A.28 28 weeks gestation of pregnancy; J02.9 Acute pharyngitis, unspecified
CPT/HCPCS: 87430; 99203; C9803; G0463; U0003; U0005

== ENCOUNTER → 2021-08-31 14:22 | Outpatient (CLI) | payer BC, SELFPAY | PROVIDERS: PCP Family Medicine; Visit Provider Nurse Practitioner Obstetrics & Gynecology | DX: Z34.90 Encounter for supervision of normal pregnancy, unspecified, unspecified trimester (principal); Z3A.36 36 weeks gestation of pregnancy | CPT/HCPCS: 86403 ==

== ENCOUNTER → 2021-09-07 10:19 | Outpatient (CLI) | payer BC, SELFPAY ==
--- NOTE | 2021-09-07 10:25 | US_ITS ---
FINAL REPORT CLINICAL HISTORY: Measuring smaller, pt is 37+ measuring 33wks FINDINGS: There is a single live intrauterine gestation. Presentation is cephalic. Placenta is anterior, grade 3. Practice breathing and movements were seen. Heart rate is 147 beats per minute. AMNIOTIC FLUID: Appropriate amount. EMILIANA: Approximately 8 cm which is normal. MEASUREMENTS: ULTRASOUND AGE: 35 weeks 4 days. GESTATION AGE: 37 weeks 2 days. ESTIMATED WEIGHT: 2628 g GROWTH PERCENTILE: 12% BPD: 8.8 cm corresponding with 35 weeks 6 days. OFD: 11.0 cm corresponding with 35 weeks 6 days. HC: 31.4 cm corresponding with 35 weeks 2 days. AC: 30.4 cm corresponding with 34 weeks 3 days. FL: 7.2 cm corresponding with 36 weeks 5 days. HC/AC: 1.03 CI: 80% FL/BPD: 81% FL/AC: 23% IMPRESSION: Single living IUP with an ultrasound age of 35 weeks 4 days. EMILIANA of approximately 8 cm A verbal report was given to Dr. Burton by the [facility]/[place] 2sms at the time of the exam. Reviewed, Interpreted and Dictated by Nikolas Ayala III, MD Transcribed by Aretha Cottrell Authenticated by Nikolas Ayala III, MD on 09/07/2021 01:05:[address] [facility]
== END ==
PROVIDERS: PCP Family Medicine; Visit Provider Nurse Practitioner Obstetrics & Gynecology
DX: O36.5990 Maternal care for other known or suspected poor fetal growth, unspecified trimester, not applicable or unspecified (principal)
CPT/HCPCS: 76816; 76819

== ENCOUNTER 2021-09-12 05:12 | Inpatient (IN) | payer BC, SELFPAY ==
[2021-09-12 05:16] VITALS: BMI 30.2
[2021-09-12 06:21] LABS: Coronavirus 19, PCR Not Detected (NotDetected); Influenza A, PCR Not Detected (NotDetected); Influenza B, PCR Not Detected (NotDetected); Microscopic, Urine URINE MICROSCOPIC (MICROSCOPIC)
[2021-09-12 06:31] LABS: Basophils # 0.1 K/mm3 (0-0.2); Basophils % 0.7 % (0.1-2.0); Eosinophils # 0.1 K/mm3 (0.0-0.4); Eosinophils % 0.9 % (0.1-12.0); Hemoglobin 12.7 g/dL (12.2-16.2); Lymphocytes # 2.1 K/mm3 (0.7-4.5); Mean Corpuscular HGB Conc 33.4 g/dL (31.8-35.4); Mean Corpuscular Hemoglobin 30.1 pg (27.0-31.2); Mean Corpuscular Volume 90.1 fl (81-99); Monocytes # 0.5 K/mm3 (0.1-1.0); Monocytes % 5.7 % (1.7-9.3); Neutrophils # 5.4 K/mm3 (1.8-7.8); Neutrophils % 66.6 % (37.0-80.0); Platelet Count 291 K/mm3 (142-424); Red Blood Count 4.22 M/mm3 (4.20-5.40); Red Cell Distribution Width 15.2 % (11.5-17.5); White Blood Count 8.1 K/mm3 (4.8-10.8)
[2021-09-12 06:49] VITALS: BP 123/75; PULSE 79; RESP 17; TEMP 36.7; O2SAT 99; BMI 31.2
[2021-09-12 06:49] LABS: Appearance,Urine CLEAR (Clear); Bilirubin,Urine Negative (Negative); Blood, Urine 1+ (Negative); Color,Urine YELLOW (Yellow); Glucose,Urine (UA) Negative (Negative); Ketones,Urine Negative (Negative); Leukocyte Esterase,Urine Negative (Negative); Nitrate,Urine Negative (Negative); Protein,Urine TRACE (Negative); Specific Gravity, Urine 1.015 (1.005-1.030); Urobilinogen,Urine 0.2 EU/dl (0.2)
--- NOTE | 2021-09-12 07:03 | HMH.PHAINT ---
MEDICATION RECONCILIATION COMPLETED ON PATIENT USING EXTERNAL FILL HISTORY FROM PHARMACY. -GLYNN ZAMBRANO, AMYD
[2021-09-12 08:00] VITALS: BP 115/59; PULSE 71; RESP 17; TEMP 36.7; O2SAT 99
[2021-09-12 08:05] LABS: Amphetamine/Metha Screen,Urine Negative ng/ml (<1000)
[2021-09-12 08:06] LABS: Barbiturates Screen,Urine Negative ng/ml (<200)
[2021-09-12 08:07] LABS: Benzodiazepines Screen,Urine Negative ng/ml (<200); Cannabinoid Screen,Urine Negative ng/ml (<50)
[2021-09-12 08:08] LABS: Cocaine Screen,Urine Negative ng/ml (<300)
[2021-09-12 08:09] LABS: Methadone Screen,Urine Negative ng/ml (<300); Phencyclidine Screen,Urine Negative ng/ml (<25)
[2021-09-12 08:10] LABS: Opiate Screen,Urine Negative ng/ml (<300)
--- NOTE | 2021-09-12 09:25 | HMH.OBAPHP ---
OB - H&P: HPI Antepartum - History of Present Illness Chief complaint: Oligohydramnios, small for gestational age History of present illness: She is a 26-year-old 2 para 1 at 38 weeks gestational age. She was seen in my office yesterday and an ultrasound confirmed that she had low amniotic fluid. The amniotic fluid index was 5. She had an ultrasound last week that showed that the babies abdomen was 3 weeks behind. As result of that we are electing to induce her labor today. She is had a previous vaginal delivery. - History of Present Criteria for establishing EDC:: LMP confirmed by 1st trimester US care: good care Ultrasounds: normal 1st trimester US, normal mid trimester US Obstetrical complications: other Narrative: Oligohydramnios, SGA - Labs Blood type: O (+) positive Rubella: immune RPR/VDRL: nonreactive GBS status: negative HBsAG: negative [facility] History I have reviewed the patient's past medical history: Yes *Have you ever received a pneumonia vaccine?: No *Have you received a flu vaccine this season?: No Other Surgeries: Yes: No Previous Surgery. No: Amputation: No Fractures: No - *Social History Smoking Status: Never smoker Alcohol Intake: never Alcohol Intake Frequency:: other Substance Use Type: denies use *Occupational Status:: unemployed *Travel in the last 8 weeks: None Family Hx:: Diabetes Para: 1 Review of Systems - Review of Systems Review of systems:: pertinent systems reviewed and negative unless documented below Meds Home Medications Medication Instructions Recorded Confirmed Type albuterol sulfate 90 mcg/actuation 2 puffs IH Q6HP PRN 08/03/21 09/12/21 History aerosol inhaler vitamin with calcium 1 tab PO DAILY tab 08/03/21 09/12/21 History no.72-iron 27 mg-folic acid 1 mg tablet Famotidine [Acid Licensed Customs Broker] 20 mg PO DAILY 09/12/21 09/12/21 History Ferrous Sulfate 325 mg PO DAILY 09/12/21 09/12/21 History Allergies Allergy/AdvReac Type Severity Reaction Status Date / Time No Known Allergies Allergy Verified 09/11/21 09:25 OB - H&P: Exam - Physical Exam Vital signs: Temp Pulse Resp BP Pulse Ox 98.1 F 79 17 123/75 99 09/12/21 06:49 09/12/21 06:49 09/12/21 06:49 09/12/21 06:49 09/12/21 06:49 - Constitutional no acute distress - Routine HEENT Exam Head: Present: normocephalic Eye: Present: EOMI, PERRL ENT: Present: mucous membranes moist - Routine Neck Exam Present: supple, full ROM - Routine Respiratory Exam Absent: accessory muscle use (good air entry bilaterally), respiratory distress, wheezes, crackles - Routine Cardiovascular Exam Present: RRR. Absent: murmur - Routine Abdominal Exam Present: soft, normoactive bowel sounds. Absent: tenderness, distended, guarding - Routine Rectal Exam Patient deferred: visual exam, digital exam - Routine Exam Patient deferred: external exam, groin exam, perineal exam - Routine Extremities Exam Present: full ROM. Absent: cyanosis, edema - Routine Skin Exam Present: intact. Absent: cyanosis - Routine Neurological Exam Present: alert, oriented X3 - Routine Psychiatric Exam Present: normal affect OB - Results - Labs Labs: Short CBC 09/12/21 Range/Units 06:00 WBC 8.1 (4.8-10.8) K/mm3 Hgb 12.7 (12.2-16.2) g/dL Hct 38.0 (37.0-47.0) % Plt Count 291 (142-424) K/mm3 Urine 09/12/21 Range/Units 06:00 Urine Color Yellow (Yellow) Urine Appearance Clear (Clear) Urine pH 7.0 (5.0-8.5) Ur Specific [place] 1.015 (1.005-1.030) Urine Protein Trace (Negative) Urine Glucose (UA) Negative (Negative) OB - A/P Antepartum (1) Oligohydramnios antepartum Status: Acute (2) SGA (small for gestational age), , affecting care of mother, antepartum Status: Acute - Additional Plan Planning to breastfeed?: Yes Plan: induction Additional Information::
--- NOTE | 2021-09-12 09:28 | HMH.LABNOT ---
Labor Note - Subjective: Date: 09/12/21 Time: 09:28 regular contraction - Objective: NST:: Reactive Contractions:: every 2-3 minutes Cervical Dilation:: 2 Effacement:: 75% Station: -1 Membranes: artificially ruptured Comment:: I ruptured her membranes and there is clear fluid. - Fetus: Monitoring?: Yes monitoring type:: External - Assessment: Labor progressing?: Yes Cephalopelvic disproportion?: No Patient Problems: All Active Problems Vaginal bleeding before 22 weeks gestation (Acute) Strep throat (Acute) Bronchitis (Acute) COVID (Acute) Oligohydramnios antepartum (Acute) SGA (small for gestational age), , affecting care of mother, antepartum (Acute) - Plan: Anesthesia for epidural?: No Continue to labor down?: Yes Plan for ?: No Continue to monitor?: Yes Start pushing?: No
[2021-09-12 11:07] VITALS: BP 119/54; PULSE 62; RESP 17; TEMP 36.8; O2SAT 99
--- NOTE | 2021-09-12 11:42 | HMH.LABNOT ---
Labor Note - Subjective: Date: 09/12/21 Time: 11:42 regular contraction - Objective: NST:: Non-reactive Contractions:: every 2-3 minutes Cervical Dilation:: 3 Effacement:: 75% Station: -1 Membranes: artificially ruptured - Fetus: Monitoring?: Yes monitoring type:: Internal and External Comment:: I inserted an IUPC. - Assessment: Labor progressing?: Yes Cephalopelvic disproportion?: No Patient Problems: All Active Problems Vaginal bleeding before 22 weeks gestation (Acute) Strep throat (Acute) Bronchitis (Acute) COVID (Acute) Oligohydramnios antepartum (Acute) SGA (small for gestational age), , affecting care of mother, antepartum (Acute) - Plan: Anesthesia for epidural?: No Continue to labor down?: Yes Plan for ?: No Continue to monitor?: Yes Start pushing?: No
--- NOTE | 2021-09-12 13:52 | HMH.LABNOT ---
Labor Note - Subjective: Date: 09/12/21 Time: 13:52 regular contraction - Objective: NST:: Reactive Contractions:: every 2-3 minutes Cervical Dilation:: 4 Effacement:: 90% Station: 0 Membranes: artificially ruptured - Fetus: Monitoring?: Yes monitoring type:: Internal and External - Assessment: Labor progressing?: Yes Cephalopelvic disproportion?: No Patient Problems: All Active Problems Vaginal bleeding before 22 weeks gestation (Acute) Strep throat (Acute) Bronchitis (Acute) COVID (Acute) Oligohydramnios antepartum (Acute) SGA (small for gestational age), , affecting care of mother, antepartum (Acute) - Plan: Anesthesia for epidural?: No Continue to labor down?: Yes Plan for ?: No Continue to monitor?: Yes Start pushing?: No
[2021-09-12 16:00] VITALS: BP 131/60; PULSE 86; RESP 18; TEMP 36.7; O2SAT 99
--- NOTE | 2021-09-12 16:38 | HMH.LABNOT ---
Labor Note - Subjective: Date: 09/12/21 Time: 16:38 regular contraction - Objective: NST:: Reactive Contractions:: every 2-3 minutes Cervical Dilation:: 5 Effacement:: 90% Station: 0 Membranes: artificially ruptured - Fetus: Monitoring?: Yes monitoring type:: Internal and External - Assessment: Labor progressing?: Yes Cephalopelvic disproportion?: No Patient Problems: All Active Problems Vaginal bleeding before 22 weeks gestation (Acute) Strep throat (Acute) Bronchitis (Acute) COVID (Acute) Oligohydramnios antepartum (Acute) SGA (small for gestational age), , affecting care of mother, antepartum (Acute) - Plan: Anesthesia for epidural?: No Continue to labor down?: Yes Plan for ?: No Continue to monitor?: Yes Start pushing?: No Additional information:: She is doing well. The head has come down significantly. She is 5 cm. The cervix is thinned out. We will continue to wait for a vaginal delivery.
--- NOTE | 2021-09-12 19:36 | HMH.LABNOT ---
Labor Note - Subjective: Date: 09/12/21 Time: 19:36 regular contraction - Objective: NST:: Reactive Contractions:: every 2-3 minutes Cervical Dilation:: 5-6 Effacement:: 90% Station: 0 Membranes: artificially ruptured - Fetus: Monitoring?: Yes monitoring type:: External - Assessment: Labor progressing?: Yes Cephalopelvic disproportion?: No Patient Problems: All Active Problems Vaginal bleeding before 22 weeks gestation (Acute) Strep throat (Acute) Bronchitis (Acute) COVID (Acute) Oligohydramnios antepartum (Acute) SGA (small for gestational age), , affecting care of mother, antepartum (Acute) - Plan: Anesthesia for epidural?: No Continue to labor down?: Yes Plan for ?: No Continue to monitor?: Yes Start pushing?: No
--- NOTE | 2021-09-12 21:45 | HMH.DN ---
- Delivery Note Delivery Date:: 09/12/21 Delivery Time:: 21:35 Anesthesia Type: None Was labor medically induced?: Yes Induction method: per pitocin protocol Gestational age (weeks): 38 Infant delivered prior to 39 weeks?: Yes Justification for early elective delivery:: IUGR, Oligohydraminos Gender: Female at 1 minute: 8 at 5 minutes: 9 Delivery Procedure:: She is a 26-year-old 2 para 1 at 38 weeks gestational age. She was seen in ultrasound last week and had slightly low fluid with a baby that was small for gestational age. She was about 3 weeks behind in her AC. I saw her yesterday and the amniotic fluid index was less than 5. As result of that we elected to induce her labor at term. She was started on IV oxytocin and had her membranes ruptured. She progressed to full dilation. She delivered spontaneously a liveborn female child at 9:35 PM in the evening of September 12, 2021. On deliver the head it was noted that there was a loose nuchal cord which was reduced. This was followed the rest 's body atraumatically. She was on her hands and knees when she delivered. The baby was vigorous and we allowed the cord to continue to pulsate for approximately 1 minute. The oropharynx and nasopharynx were bulb suction. The baby was stimulated. We then doubly clamped the cord and cut the cord. The baby was then placed on the mother's abdomen for further care. The nurses assigned Apgars of 8 at 1 minute and 9 at 5 minutes. She received IV oxytocin using gentle traction on the cord and countertraction the fundus I was able to easily deliver the placenta intact. Had a normal three-vessel cord. She had a small posterior scratch on the posterior vaginal mucosa. It was very small so we elected just leave this and it will heal on its own. She has O+ blood, she is well immune and was group B streptococcus negative. She plans to breast-feed. Her estimated blood loss was less than 200 cc. Placental Delivery Description: Spontaneous
[2021-09-13 08:02] LABS: Hematocrit 35.5 % (37.0-47.0); Hemoglobin 11.8 g/dL (12.2-16.2)
--- NOTE | 2021-09-13 09:18 | HMH.ACPN2 ---
Internal Medicine - PN: Subj *Date: 09/13/21 *Time: 09:18 Interval history: She is doing well this morning. She is eating and drinking and ambulating. She is breast-feeding. Her lochia is normal. She does complain of some vaginal discomfort. She did have a small tear posteriorly. It was small enough that it did not need a suture. Exam Vital signs and Labs for Last 24 Hours: Temp Pulse Resp BP Pulse Ox 98.1 F 86 18 131/60 99 09/12/21 16:00 09/12/21 16:00 09/12/21 16:00 09/12/21 16:00 09/12/21 16:00 Laboratory Results - last 24 hr 09/13/21 07:25: Hgb 11.8 L, Hct 35.5 L I & O for Last 24 hours: Intake & Output 09/10/21 09/11/21 09/12/21 09/13/21 11:59 11:59 11:59 11:59 Weight 171 lb - Constitutional no acute distress - *Routine HEENT Exam Head: Present: normocephalic Eye: Present: EOMI, PERRL ENT: Present: mucous membranes moist Assessment and Plan (1) Oligohydramnios antepartum Status: Acute Category: Medical Code(s): O41.00X0 - Oligohydramnios, unspecified trimester, not applicable or unspecified (2) SGA (small for gestational age), , affecting care of mother, antepartum Status: Acute Category: Medical Code(s): O36.5990 - Maternal care for other known or suspected poor growth, unspecified trimester, not applicable or unspecified - Assessment and plan all Dx Assessment and Plan for all problems:: She is doing well. She does have some perineal discomfort. We will try some ice packs. We will plan to send her home tomorrow.
[2021-09-13 20:27] VITALS: BP 113/58; PULSE 55; RESP 18; TEMP 36.7; O2SAT 99
[2021-09-14 04:00] VITALS: BP 114/60; PULSE 58; RESP 16; TEMP 36.8; O2SAT 98
--- NOTE | 2021-09-14 09:26 | HMH.OBDCSM ---
General - General Admission date:: 09/12/21 Discharge date: 09/14/21 HPI - History of Present Illness History of present illness: She is a 26-year-old 2 now para 2 at 38 weeks gestational age. She was seen in my office and had oligohydramnios. She was known to have a small for gestational age . As result that she was brought in for induction of labor at term. Hospital Course Hospital Course: She was started on IV oxytocin had her membranes ruptured. She progressed to full dilation and delivered spontaneously a liveborn female child at 9:35 PM in the evening of September 12, 2021. The baby weighed 5 pounds 10 ounces and was 18 inches long. She had Apgars of 8 at 1 minute and 9 at 5 minutes. She has done well and has remained afebrile throughout her hospitalization. She is eating and drinking and ambulating. She is breast-feeding. She has O+ blood, she is rubella immune and was group B streptococcus negative. She was given the usual instructions with respect to limiting her activity, driving and sexual activity. She will continue with her vitamins as long as she is breast-feeding. She was given the usual instructions with respect to limiting her activity, driving and sexual activity. Her condition on discharge is stable and improved. Rhogam Administration: Not Indicated Objective Vital signs: Temp Pulse Resp BP Pulse Ox 98.2 F 58 L 16 114/60 98 09/14/21 04:00 09/14/21 04:00 09/14/21 04:00 09/14/21 04:00 09/14/21 04:00 no acute distress - *Routine HEENT Exam Head: Present: normocephalic Eye: Present: EOMI, PERRL ENT: Present: mucous membranes moist DS: Diagnosis - Discharge Diagnosis (1) Oligohydramnios antepartum Status: Acute (2) SGA (small for gestational age), , affecting care of mother, antepartum Status: Acute Discharge Plan - Patient Discharge Instructions ACTIVITY: No heavy lifting DIET: continue same diet Additional Instructions: *Nothing in the Vagina for 6 weeks* *No strenuous activity* *No heavy lifting* Patient Instructions: Depression, Hemorrhage, DI for Labor and Delivery, Vaginal , DI for Pre-eclampsia, [facility] Post Discharge Instructions, Preventing the Spread of Coronavirus Discharge Instructions - Follow up Plan Disposition: Home, Self-Care Condition at discharge:: Stable Home Medications: Home Medications Medication Instructions Recorded Confirmed Type albuterol sulfate 90 mcg/actuation 2 puffs IH Q6HP PRN 08/03/21 09/12/21 History aerosol inhaler vitamin with calcium 1 tab PO DAILY tab 08/03/21 09/12/21 History no.72-iron 27 mg-folic acid 1 mg tablet Famotidine [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
== END 2021-09-14 12:00 | disposition home or self-care (01) | DRG 807 ==
PROVIDERS: Admitting Provider Nurse Practitioner Obstetrics & Gynecology; PCP Nurse Practitioner Family; Visit Provider Nurse Practitioner Obstetrics & Gynecology
DX: O41.03X0 Oligohydramnios, third trimester, not applicable or unspecified (principal); Z37.0 Single live birth; Z3A.38 38 weeks gestation of pregnancy; O36.5930 Maternal care for other known or suspected poor fetal growth, third trimester, not applicable or unspecified; O69.81X0 Labor and delivery complicated by cord around neck, without compression, not applicable or unspecified; Z86.16 Personal history of COVID-19
CPT/HCPCS: 59409; 36415; 59025; 80305; 81001; 85014; 85018; 85025; 86850; C1758; C9803; U0003; U0005

== ENCOUNTER 2021-11-14 10:23 | Emergency (ER) | payer BC, SELFPAY ==
[2021-11-14 10:42] VITALS: BP 115/51; PULSE 69; RESP 20; TEMP 37; O2SAT 95; BMI 25.8
[2021-11-14 11:03] LABS: Strep Scrn Group A (Rapid) Negative (Negative)
--- NOTE | 2021-11-14 11:12 | HMH.EDUTC ---
[facility] [place] Clinical Impression: Viral syndrome, Bronchitis Acute sinusitis Qualifiers: Sinusitis location: unspecified location Recurrence: recurrent Qualified Code(s): J01.91 - Acute recurrent sinusitis, unspecified Disposition: Home, Self-Care Condition on Discharge: Good Instructions: DI for Sinusitis, DI for Acute Bronchitis Additional Instructions: Drink plenty of fluids. Take tylenol or ibuprofen for pain or fever. Take the medications as directed. Follow up with your regular doctor. GO TO THE ER FOR ANY WORSENING SYMPTOMS Prescriptions: Amoxicillin [Amoxicillin 500mg Tab] 500 mg PO TID 10 Days #30 tab Transmission Status: Received by [id number] Referrals: Ilir Gama MD [Primary Care Provider] - Time of Disposition: 11:21 Medical Decision Making - Medical Records Medical records reviewed: No: I reviewed the patient's medical records. - Hair Inquiry Pt receiving controlled substance: No Vital Signs: 11/14/21 10:42 11/14/21 11:24 Temperature 98.6 F 98.6 F Temperature Source Oral Pulse Rate 69 Pulse Rate [Left Radial] 69 Respiratory Rate 20 20 Blood Pressure 115/51 L Blood Pressure [Right Arm] 115/51 L Blood Pressure Mean [Right Arm] 72 02 Sat by Pulse Oximetry 95 - Lab Data Lab results reviewed: Yes: I reviewed the patient's lab results. Lab Results 11/14/21 10:43: Group A Strep Rapid Negative Orders (Tests/Meds): ORDERS Category Date Time Status Full Resp Panel w/COVID ([facility]) Routine Lab 11/14/21 11:17 Received Strep Screen Confirmation Stat Micro 11/14/21 10:43 Received [facility] [place] - General Stated complaint: h/a, sore throat, cough, runny nose Time Seen by Provider: 11/14/21 11:14 Mode of Arrival: Ambulatory Source of Information: Patient Limitations: No Limitations Description of Symptoms (Recalled from Triage Doc. by RN): pt here with c/o sore throat, headache, sneezing and coughing. symptoms began 2 days ago. pt does not speak ukrainian. but is with her and he does. HEENT Symptoms (Recalled from RN notes): Yes Resp Symptoms (Recalled from RN notes): Yes Skin Symptoms (Recalled from RN notes): No MS Symptoms (Recalled from RN notes): No Functional Status (Recalled from RN notes): wnl - History of Present Illness Provider Complaint: She states that for the past 2 days she has had sinus congestion, chills, nausea, and a scratchy sore throat. - Related Data Previous Rx's Medication Instructions Recorded Amoxicillin [Amoxicillin 500mg Tab] 500 mg PO TID 10 Days #30 tab 11/14/21 Allergies Allergy/AdvReac Type Severity Reaction Status Date / Time No Known Allergies Allergy Verified 10/30/21 10:43 - Worker's Comp Is this a Worker's Comp case?: No [facility] History - Hepatitis A Screen Attestation statement:: This patient has been screened for Hepatitis A risk factors. I have reviewed the patient's past medical history: Yes Other Surgeries: Yes: No Previous Surgery. No: Amputation: No Fractures: No - Social History Smoking Status: Never smoker Alcohol Intake: never Alcohol Intake Frequency:: other Substance Use Type: denies use Occupational Status: unemployed Family Hx:: Diabetes Comment: 08/31/2018 @ 1451--- , 6LB 2OZ, 19 1/4 INCH, MALE. 7/9 ROS Obtained: Yes All systems reviewed & no additional complaints - Constitutional Constitutional: Reports as per HPI - Eyes Eyes: Denies eye discharge - ENT Ears, Nose, Mouth, and Throat: Reports as per HPI - Cardiovascular Cardiovascular: Denies chest pain - Respiratory Respiratory: Denies chest congestion, Reports cough, Denies dyspnea, Denies stridor, Denies wheezing - Gastrointestinal Gastrointestingal: Reports: nausea. Denies: abdominal pain, diarrhea, vomiting - Musculoskeletal Musculoskeletal: Denies joint pain - Integumentary/Breasts Skin/Breast: Denies rash - Neurologic Neurologic: Denies tinglin
[2021-11-14 11:24] VITALS: BP 115/51; PULSE 69; RESP 20; TEMP 37
[2021-11-14 11:29] LABS: Adenovirus,PCR Not Detected (NotDetected); Bordetella Pertussis Not Detected (NotDetected); Chlamydophila Pneumoniae, PCR Not Detected (NotDetected); Coronavirus 19, PCR Not Detected (NotDetected); Coronavirus 229E Not Detected (NotDetected); Coronavirus NL63 Not Detected (NotDetected); Coronavirus OC43 Not Detected (NotDetected); Coronovirus HKU1,PCR Not Detected (NotDetected); Human Metapneumovirus Not Detected (NotDetected); Influenza A, PCR Not Detected (NotDetected); Influenza AH1, 2009 Not Detected (NotDetected); Influenza AH1, PCR Not Detected (NotDetected); Influenza AH3,PCR Not Detected (NotDetected); Influenza B, PCR Not Detected (NotDetected); Mycoplasma Pneumoniae, PCR Not Detected (NotDetected); Parainfluenza 1, PCR Not Detected (NotDetected); Parainfluenza 2, PCR Not Detected (NotDetected); Parainfluenza 3, PCR Not Detected (NotDetected); Parainfluenza 4, PCR Not Detected (NotDetected); Respiratory Syncytial Virus Not Detected (NotDetected)
[2021-11-14 13:15] LABS: Rhinovirus/Enterovirus Detected (NotDetected)
== END 2021-11-14 11:38 | disposition home or self-care (01) ==
PROVIDERS: Emergency Provider Nurse Practitioner Family; PCP Internal Medicine Adolescent Medicine
DX: J20.9 Acute bronchitis, unspecified (principal); J01.91 Acute recurrent sinusitis, unspecified
CPT/HCPCS: 87430; 87581; 87632; 87798; 99212; C9803; G0463; U0003; U0005

== ENCOUNTER 2022-03-24 10:13 | Emergency (ER) | payer BC, SELFPAY ==
[2022-03-24 10:30] VITALS: BP 116/76; PULSE 64; RESP 18; TEMP 36.7; O2SAT 100; BMI 25.0
[2022-03-24 10:48] LABS: Adenovirus,PCR Not Detected (NotDetected); Bordetella Pertussis Not Detected (NotDetected); Chlamydophila Pneumoniae, PCR Not Detected (NotDetected); Coronavirus 19, PCR Not Detected (NotDetected); Coronavirus 229E Not Detected (NotDetected); Coronavirus NL63 Not Detected (NotDetected); Coronavirus OC43 Not Detected (NotDetected); Coronovirus HKU1,PCR Not Detected (NotDetected); Human Metapneumovirus Not Detected (NotDetected); Influenza A, PCR Not Detected (NotDetected); Influenza AH1, 2009 Not Detected (NotDetected); Influenza AH1, PCR Not Detected (NotDetected); Influenza AH3,PCR Not Detected (NotDetected); Influenza B, PCR Not Detected (NotDetected); Mycoplasma Pneumoniae, PCR Not Detected (NotDetected); Parainfluenza 1, PCR Not Detected (NotDetected); Parainfluenza 2, PCR Not Detected (NotDetected); Parainfluenza 3, PCR Not Detected (NotDetected); Parainfluenza 4, PCR Not Detected (NotDetected); Respiratory Syncytial Virus Not Detected (NotDetected)
--- NOTE | 2022-03-24 10:49 | EXP.UTC ---
Discharge Plan Disposition Patient Disposition: Home, Self-Care Condition: Good Referrals Follow up/Referrals: Ilir Gama MD [Primary Care Provider] - See instructions Activity Restrictions/Add. Instructions Additional Instructions/Restrictions: *Monitor Temp, Over the counter Motrin or Tylenol as directed/as needed Tylenol every 4 hours and Motrin every 6 hours (as long as your family doctor has told you that you can take it) for fever or pain. and straight to ER if unable to lower temp less than 101.0 after medication given *Warm salt water gargles may help to soothe the throat *Throat Lozenges? *Warm fluids like tea with honey may help to soothe the throat? *Sleep elevated *Humidifier/Vaporizer Your throat swab was sent for culture. Those results are typically sent to your primary care. Be sure to follow up in 2-3 days with your family doctor/primary care physician if no improvement so they can review those result and treat if necessary. If you don?t have a primary care doctor, I recommend you get one but in the mean time, you will have to return to a walk in clinic Follow up IMMEDIATELY for new or worsening symptoms or no Noticeable improvement over the next 48-72 hours. 911 for difficulty breathing or swallowing You were tested for today for COVID19 your test result should be back in the next 24-48 hours, you may check your results on the [facility] My Health Portal Make sure to take your Vitamins Vit. C Vit D and Zinc if you can take them Clinical Impressions Clinical Impression: Viral syndrome Stand Alone Forms Stand Alone Forms: Work/School Release Instructions Patient Instructions: Sore Throat, DI for Viral Upper Respiratory Infection -- Adult Discharge ED Provider: Melida Jean [facility] General Stated complaint: sore throat Mode of Arrival: Ambulatory Source of Information: Patient Limitations: No Limitations Time Seen by Provider: 03/24/22 10:49 Description of Symptoms (Recalled from Triage Doc. by RN): PATIENT C/O SORE THROAT, SNEEZING, COUGH, AND CONGESTION SINCE YESTERDAY HEENT Symptoms (Recalled from RN notes): Yes Resp Symptoms (Recalled from RN notes): Yes Skin Symptoms (Recalled from RN notes): No MS Symptoms (Recalled from RN notes): No Functional Status (Recalled from RN notes): WNL History of Present Illness Provider Complaint: Patient states that she has been caring for her son that tested positive for Strep and Rhino States that she is now having sore throat and runny nose so she came in today wanting to get checked and tested Related Data Allergies Allergy/AdvReac Type Severity Reaction Status Date / Time No Known Allergies Allergy Verified 10/30/21 10:43 Worker's Comp Is this a Worker's Comp case?: No PFSH [facility] Medical History (Updated 03/24/22 @ 10:52 by Melida Jean APRN) No significant past medical history Social History Smoking Status: Never smoker alcohol intake: never substance use type: denies use current occupational status: unemployed Travel in the last 8 weeks: None ROS Obtained: Yes All systems reviewed & no additional complaints except as documented and Yes Systems reviewed as appropriate & no additional complaints except as documented Constitutional Constitutional: Reports system reviewed and no additional complaints, except as documented and Reports as per HPI ENT Ears, Nose, Mouth, and Throat: Reports system reviewed and no additional complaints, except as documented, Reports as per HPI, Reports nasal congestion, Reports nasal discharge and Reports sore throat Cardiovascular Cardiovascular: Reports system reviewed and no additional complaints, except as documented and Reports as per HPI Respiratory Respiratory: Reports system reviewed and no additional complaints, except as documented, Reports as per HPI and Reports cough Gastrointestinal Gastrointestingal: Reports system r
[2022-03-24 11:02] VITALS: BP 116/76; PULSE 64; RESP 18; TEMP 36.7; O2SAT 100
[2022-03-24 11:09] LABS: UTC Strep Screen (Rapid) Negative (Negative)
[2022-03-24 13:35] LABS: Rhinovirus/Enterovirus Detected (NotDetected)
== END 2022-03-24 11:06 | disposition home or self-care (01) ==
PROVIDERS: Emergency Provider Nurse Practitioner; PCP Internal Medicine Adolescent Medicine
DX: B34.8 Other viral infections of unspecified site (principal)
CPT/HCPCS: 87581; 87632; 87798; 87880; 99212; C9803; G0463; U0003; U0005

== ENCOUNTER 2023-06-11 14:06 | Emergency (ER) | payer BC, SELFPAY ==
[2023-06-11 14:50] VITALS: BP 118/84; PULSE 78; RESP 18; TEMP 36.9; O2SAT 96; BMI 24.4
--- NOTE | 2023-06-11 14:55 | EXP.UTC ---
Discharge Plan Disposition Patient Disposition: Home, Self-Care Condition: Good Prescriptions Prescriptions: New benzonatate [benzonatate] 100 mg capsule 100 mg PO TIDP PRN (Reason: Cough) Qty: 30 0RF oseltamivir [Tamiflu] 75 mg capsule 75 mg PO BID Qty: 10 0RF ondansetron 4 mg Tablet,Disintegrating 4 mg PO Q8H PRN (Reason: Nausea) Qty: 12 0RF Referrals Follow up/Referrals: Ce Obrien DO [Primary Care Provider] - See instructions Activity Restrictions/Add. Instructions Additional Instructions/Restrictions: Drink plenty of fluids. Take tylenol or ibuprofen for pain or fever. Take the medications as directed. Follow up with your regular doctor. GO TO THE ER FOR ANY WORSENING SYMPTOMS Clinical Impressions Clinical Impression: Acute viral syndrome, Exposure to influenza Instructions Patient Instructions: DI for H1N1 Influenza -- Adult, Oseltamivir Discharge ED Provider: Ilir Pleitez [facility] General Stated complaint: cough, sore throat, headache Time Seen by Provider: 06/11/23 14:54 History of Present Illness Provider Complaint: She states that for the past 2 days she has had sore throat, chills, body aches and low grade fever. Related Data Previous Rx's Medication Instructions Recorded benzonatate 100 mg capsule 100 mg PO TIDP PRN Cough #30 caps 06/11/23 ondansetron 4 mg disintegrating 4 mg PO Q8H PRN Nausea #12 tabs 06/11/23 tablet oseltamivir 75 mg capsule (Tamiflu) 75 mg PO BID #10 caps 06/11/23 Allergies Allergy/AdvReac Type Severity Reaction Status Date / Time No Known Allergies Allergy Verified 06/11/23 15:40 [facility] Disclaimer: The information contained in this section may have been updated after the patient was seen, as this information can be updated by other users. Medical History (Updated 06/11/23 @ 15:52 by Ilir Pleitez APRN) Bronchitis COVID No significant past medical history Oligohydramnios antepartum SGA (small for gestational age), , affecting care of mother, antepartum Strep throat Viral syndrome Social History Smoking Status: Never smoker alcohol intake: never substance use type: denies use current occupational status: unemployed Travel in the last 8 weeks: None ROS Obtained: Yes All systems reviewed & no additional complaints except as documented Constitutional Constitutional: Reports chills and Reports fever(s) Eyes Eyes: Denies eye discharge ENT Ears, Nose, Mouth, and Throat: Reports as per HPI Cardiovascular Cardiovascular: Denies chest pain Respiratory Respiratory: Denies chest congestion and Reports cough Gastrointestinal Gastrointestingal: Reports nausea; Denies abdominal pain, constipation, cramping, diarrhea or vomiting Musculoskeletal Musculoskeletal: Denies arthralgias Integumentary/Breasts Skin/Breast: Denies rash Neurologic Neurologic: Denies paresthesias Physical Exam General General appearance: alert and in no apparent distress Head Head exam: atraumatic, normocephalic and normal inspection Eye Eye exam: Present normal appearance, PERRL and EOMI ENT ENT exam: Present normal exam, normal oropharynx, mucous membranes moist, TM's normal bilaterally and normal external ear exam Neck Neck exam: Present normal inspection, full ROM and trachea midline; Absent meningismus or lymphadenopathy Chest Chest inspection: Present normal inspection and symmetric chest wall rise; Absent tenderness Respiratory Respiratory exam: Present normal lung sounds bilaterally; Absent respiratory distress Cardiovascular Cardiovascular exam: Present regular rate and normal rhythm; Absent JVD Abdominal Exam Abdominal exam: Present soft and normal bowel sounds; Absent distention, tenderness or guarding Extremities Exam Extremities exam: Present normal inspection, full ROM and normal capillary refill; Absent calf tenderness Back Exam Back exam: Present normal inspection; A
[2023-06-11 15:12] LABS: Adenovirus,PCR Not Detected (NotDetected); Coronavirus 19, PCR Not Detected (NotDetected); Coronavirus 229E Not Detected (NotDetected); Coronavirus NL63 Not Detected (NotDetected); Coronavirus OC43 Not Detected (NotDetected); Coronovirus HKU1,PCR Not Detected (NotDetected); Human Metapneumovirus Not Detected (NotDetected); Influenza A, PCR Not Detected (NotDetected); Influenza AH1, 2009 Not Detected (NotDetected); Influenza AH1, PCR Not Detected (NotDetected); Influenza AH3,PCR Not Detected (NotDetected); Influenza B, PCR Not Detected (NotDetected); Parainfluenza 1, PCR Not Detected (NotDetected); Parainfluenza 2, PCR Not Detected (NotDetected); Parainfluenza 3, PCR Not Detected (NotDetected); Parainfluenza 4, PCR Not Detected (NotDetected); Respiratory Syncytial Virus Not Detected (NotDetected); Rhinovirus/Enterovirus Not Detected (NotDetected)
[2023-06-11 16:03] VITALS: BP 118/84; PULSE 78; RESP 18; TEMP 36.9; O2SAT 96
== END 2023-06-11 16:03 | disposition home or self-care (01) ==
PROVIDERS: Emergency Provider Nurse Practitioner Family; PCP Pediatrics
DX: R51.9 Headache, unspecified (principal); R05.9 Cough, unspecified; R07.0 Pain in throat; R50.9 Fever, unspecified; M79.18 Myalgia, other site; B34.9 Viral infection, unspecified; R11.0 Nausea; Z20.828 Contact with and (suspected) exposure to other viral communicable diseases
CPT/HCPCS: 87632; 87635; 99212; 99214; G0463

== ENCOUNTER 2024-09-03 22:45 | Emergency (ER) | payer BC, SELFPAY ==
[2024-09-03 22:50] VITALS: BP 126/73; PULSE 75; RESP 18; TEMP 36.4; O2SAT 100; BMI 25.8
--- NOTE | 2024-09-03 22:57 | ED_ITS ---
Discharge Plan Disposition Patient Disposition: Home, Self-Care Prescriptions Prescriptions: No Action No Known Home Medications Referrals Follow up/Referrals: Ce Obrien DO [Primary Care Provider] - See instructions Jessy Barreto DPM [Staff Physician] - See instructions Activity Restrictions/Add. Instructions Additional Instructions/Restrictions: Please keep toes alonzo taped and wear the hard soled shoe to help protect the toe. Please take Tylenol and ibuprofen as needed for pain. Recommend following up with our reliability technicians Dr. Barreto. Clinical Impressions Clinical Impression: Phalanx of the foot fracture Qualifiers: Encounter type: initial encounter Toe: lesser toe Fracture type: closed Phalanx: proximal Fracture alignment: displaced Laterality: left Qualified Code(s): S92.512A - Displaced fracture of proximal phalanx of left lesser toe(s), initial encounter for closed fracture Print Language Print Language: Persian Discharge ED Provider: Buck Carpenter General Adult HPI General Chief complaint: Extremity Injury, Lower Stated complaint: AO 09/03/24 2200 injury middle toe left foot Time Seen by Provider: 09/03/24 22:57 Mode of Arrival: Ambulatory Source of Information: Patient Description of Symptoms (Recalled from ER Triage Doc. by RN): Pt fell out of chair and then the chair fell on her foot. Pt's 3rd toe on her left has a deformity History of Present Illness HPI narrative: 29-year-old female without significant past medical history presents for left third toe injury. She has a deformity, no laceration. No other injuries reported. Happened after she excellently kicked something, just prior to arrival Related Data Home Medications ?Medication ?Instructions ?Recorded ?Confirmed No Known Home Medications 09/03/24 09/03/24 Allergies Allergy/AdvReac Type Severity Reaction Status Date / Time No Known Allergies Allergy Verified 09/03/24 22:55 [facility] Disclaimer: The information contained in this section may have been updated after the patient was seen, as this information can be updated by other users. Medical History (Updated 09/04/24 @ 00:06 by Buck Carpenter MD) No significant past medical history Viral syndrome SGA (small for gestational age), , affecting care of mother, antepartum Oligohydramnios antepartum COVID Bronchitis Strep throat Social History Smoking Status: Never smoker alcohol intake: never substance use type: denies use current occupational status: unemployed Travel in the last 8 weeks: None Have you lived/traveled outside [place] in past 30 days?: No Contact w/someone who lives/traveled outside [place] past 30 days?: No Exposure to someone with infectious disease in past 14 days?: No Do you have a fever (greater than 100.4 F or 38 C)?: No Have you tested positive for COVID-19: No Exposed to someone with COVID-19 in past 14 days?: No Do you have a sore throat?: No Do you have a cough?: No Do you have any weakness?: No Do you have any diarrhea?: No Are you experiencing any unusual bleeding?: No Do you have any muscle aches/pain?: No Do you have any abdominal pain?: No Are you experiencing loss of taste or smell?: No Other Medical History Have you received the Flu Vaccine for this season: No Have you received the Pneumonia Vaccine: No ROS Obtained: Yes All systems reviewed & no additional complaints except as documented Physical Exam General General appearance: alert and in no apparent distress Head Head exam: atraumatic and normocephalic Eye Eye exam: Present normal appearance, PERRL and EOMI ENT ENT exam: Present normal oropharynx and normal external ear exam Neck Neck exam: Present normal inspection and full ROM Chest Chest inspection: Present normal inspection and symmetric chest wall rise; Absent tenderness Respiratory Respiratory exam: Present normal lung sounds bilaterally; Absent respiratory distress Cardiovascular Cardiovascular exam: Present regular rate and normal rhythm Abdominal Exam Abdominal exam: Present soft; Absent distention, tenderness or guarding Extremities Exam Extremities exam: Present tenderness (Tenderness mild swelling and deformity to the left third toe. Toe is angling laterally. No laceration); Absent edema or joint swelling Back Exam Back exam: Present normal inspection; Absent tenderness Neurological Exam Neurological exam: Present alert and oriented X3; Absent motor sensory deficit Psychiatric Psychiatric exam: Present normal affect and normal mood Skin Skin exam: Present warm, dry and normal color Lymphatic Lymphatic Findings: no adenopathy Medical Decision Making Medical Records Medical records reviewed: Yes I reviewed the patient's medical records. Screening: Per USPSTF and CDC recommendations, given the prevalence of disease in our region, it is our hospital?s policy to screen for HIV and viral Hepatitis for all patients aged 18 and over and those with ongoing risk factors. Hair Inquiry Pt receiving controlled substance: No Hair was queried for this patient: No Vital Signs: 09/03/24 22:50 09/03/24 23:00 09/04/24 00:21 Temperature 97.5 F L 98.3 F 97.9 F Temperature Source Oral Pulse Rate 72 70 Pulse Rate [Right] 75 Respiratory Rate 18 16 16 Blood Pressure 130/80 111/79 Blood Pressure [Right Arm] 126/73 Blood Pressure Mean [Right Arm] 90 Blood Pressure Source [Right Arm] Automatic Cuff Blood Pressure Position Sitting Blood Pressure Position [Right Arm] Sitting 02 Sat by Pulse Oximetry 100 100 Oxygen Delivery Method Room Air Room Air Room Air Lab Data Lab results reviewed: Yes I reviewed the patient's lab results. Orders (Tests/Meds): ED MEDICATIONS Discontinued Medications Generic Name Dose Route Start Last Admin Trade Name Arnav PRN Reason Stop Dose Admin Acetaminophen 1,000 mg 09/03/24 23:01 09/03/24 23:29 Acetaminophen 500mg Tab PO 09/03/24 23:02 1,000 mg ONCE ONE Administration Ketorolac Tromethamine 30 mg 09/03/24 23:01 09/03/24 23:30 Ketorolac 30mg/Ml Vial IM 09/03/24 23:02 30 mg ONCE ONE Administration ORDERS Category Date Time Status Foot XR left minimum 3 views [XR foot LT min 3V] Stat Exams 09/03/24 23:01 Completed Foot XR left minimum 3 views [XR foot LT min 3V] Stat Exams 09/03/24 23:51 Completed Medical Decision Narrative: 29-year-old female presents with toe pain. History was obtained via interactive discussion with patient. On arrival, patient is [afebrile, hemodynamically stable, satting appropriately, alert, oriented x4, GCS 15], moving all extremities spontaneously. Full physical exam performed and significant for deformity as discussed above Differential includes but is not limited to fracture dislocation neurovascular/ligamentous injury. Patient was given Tylenol and Toradol for symptomatic management and correction of underlying abnormalities. Patient reports there is no way she was and did not want a test. Workup initiated including radiographs of the left foot. Imaging independently interpreted by me and significant for comminuted and displaced fracture of the left third proximal phalanx. See radiology read for full review of final results. Fracture reduction was performed by me at bedside with alonzo taping. Repeat x- ray interpreted by me shows appropriate reduction of the fracture. Given patient history, exam and workup, patient's presentation most likely represents acute left third digit proximal phalanx fracture. Patient was alonzo taped and given a hard soled shoe and instructions to follow-up with our reliability technicians. Return precautions given. Procedures Risk/Benefits of Procedure(s) Were Explained: Yes Orthopedic Fracture Reduction Fracture #1: Time Out Performed: Yes Side: left Fracture Reduction Location: toe (Third digit proximal phalanx) Analgesia: none Technique: direct manipulation Post Reduction X-rays Demonstrate: acceptable reduction Post-reduction neuro exam: intact and no change Post-reduction vascular exam: intact and no change Splint Applied: Yes Patient Tolerated Procedure: well and no complications Critical Care Critical Care Time Critical Care Time: No
[2024-09-03 23:00] VITALS: BP 130/80; PULSE 72; RESP 16; TEMP 36.8; O2SAT 100
--- NOTE | 2024-09-03 23:01 | XR_ITS ---
PROCEDURE INFORMATION: Exam: XR Left Foot Exam date and time: 09/03/2024 11:10 PM Age: 29 years old Clinical indication: Pain; Foot; Left; Additional info: 3 digit trauma TECHNIQUE: Imaging protocol: Radiologic exam of the left foot. Views: 3 or more views. Total images: 3 COMPARISON: CR XR FOOT LT MIN 3V 09/03/2024 11:10 PM FINDINGS: Bones/joints: Acute mildly comminuted fracture proximal phalanx 3rd toe. No significant displacement or angulation of the fracture site. No intra-articular extension. No joint dislocation. No additional acute osseous abnormalities. Soft tissues: Mild soft tissue swelling 3rd toe. IMPRESSION: Acute fracture proximal phalanx left 3rd toe.
[2024-09-03] MEDS: ACETAMINOPHEN 500MG TAB 1000 MG PO (23:29)
[2024-09-03] MEDS: KETOROLAC 30MG/ML VIAL 30 MG IM (23:30)
--- NOTE | 2024-09-03 23:51 | XR_ITS ---
PROCEDURE INFORMATION: Exam: XR Left Foot Exam date and time: 09/03/2024 11:53 PM Age: 29 years old Clinical indication: Pain; Foot; Left; Additional info: Post reduction TECHNIQUE: Imaging protocol: Radiologic exam of the left foot. Views: 3 or more views. Total images: 3 COMPARISON: CR XR FOOT LT MIN 3V 09/03/2024 11:10 PM FINDINGS: Bones/joints: Acute mildly comminuted nondisplaced fracture proximal phalanx left 3rd toe as shown previously. No significant displacement or angulation. No joint dislocation. No additional acute osseous abnormalities. Soft tissues: Mild soft tissue swelling 3rd toe. IMPRESSION: Acute fracture proximal phalanx left 3rd toe with satisfactory alignment.
[2024-09-04 00:21] VITALS: BP 111/79; PULSE 70; RESP 16; TEMP 36.6; O2SAT 98
== END 2024-09-04 00:22 | disposition home or self-care (01) ==
PROVIDERS: Emergency Provider Emergency Medicine; PCP Pediatrics
DX: S92.512A Displaced fracture of proximal phalanx of left lesser toe(s), initial encounter for closed fracture (principal); M79.675 Pain in left toe(s); W22.8XXA Striking against or struck by other objects, initial encounter; Y93.89 Activity, other specified; Y92.9 Unspecified place or not applicable
CPT/HCPCS: 28515; 73630; 96372; 99283; J1885

== ENCOUNTER 2024-09-30 09:58 | Outpatient (CLI) | payer BC, SELFPAY ==
--- NOTE | 2024-09-30 10:01 | XR_ITS ---
FINAL REPORT CLINICAL HISTORY: Foot Pain fell 3rd digit COMPARISON: None FINDINGS: LEFT FOOT Three views demonstrate a comminuted fracture of the third proximal phalanx, with 1.5 mm of displacement. The joint spaces appear normal without articular involvement. IMPRESSION: Comminuted fracture of the third proximal phalanx of the left foot as described, which does not appear to involve the articular surface. Reviewed, Interpreted and Dictated by Kristin Granados MD Transcribed by Lynne Parisi Authenticated and . [facility]
== END 2024-09-30 23:59 | disposition home or self-care (01) ==
LOC: RAD 09:59
PROVIDERS: PCP Internal Medicine Adolescent Medicine; Visit Provider Podiatrist
DX: M79.672 Pain in left foot (principal)
CPT/HCPCS: 73630

== ENCOUNTER 2024-09-30 11:40 | Outpatient (RCR) | payer BC, SELFPAY | END 2024-09-30 23:59 | disposition home or self-care (01) | LOC: PT 11:40 | PROVIDERS: Visit Provider Nurse Practitioner | DX: S92.515A Nondisplaced fracture of proximal phalanx of left lesser toe(s), initial encounter for closed fracture (principal) | CPT/HCPCS: 97760 ==

== ENCOUNTER 2024-11-01 08:10 | Outpatient (CLI) | payer BC, SELFPAY ==
--- NOTE | 2024-11-01 08:13 | XR_ITS ---
FINAL REPORT CLINICAL HISTORY: 3rd proximal phalange fx COMPARISON: 09/30/2024 FINDINGS: LEFT FOOT Three views of the left foot demonstrate a comminuted nondisplaced fracture of the third proximal phalange. No definite intra-articular extension is noted. Mild callus formation is noted at the fracture margins. The visualized joint spaces are normally aligned. The soft tissues are unremarkable. IMPRESSION: Third proximal phalange fracture with mild callus formation. Reviewed, Interpreted and Dictated by Oziel Millan MD Transcribed by Ewa King Authenticated and [facility]
== END 2024-11-01 23:59 | disposition home or self-care (01) ==
LOC: RAD 08:10
PROVIDERS: PCP Internal Medicine Adolescent Medicine; Visit Provider Nurse Practitioner
DX: S92.515D Nondisplaced fracture of proximal phalanx of left lesser toe(s), subsequent encounter for fracture with routine healing (principal)
CPT/HCPCS: 73630

== ENCOUNTER 2024-12-09 09:04 | Outpatient (CLI) | payer BC, SELFPAY ==
--- NOTE | 2024-12-09 09:09 | XR_ITS ---
FINAL REPORT CLINICAL HISTORY: left 3rd met fracture, pain when walking COMPARISON: 11/01/2024 FINDINGS: LEFT FOOT Three views of the left foot demonstrate the fracture line at the 3rd proximal phalanx is less well seen than on the previous exam. There is progressive callus formation. The visualized joint spaces are normally aligned. The soft tissues are unremarkable. IMPRESSION: Progressive healing 3rd metatarsal proximal phalanx fracture. Reviewed, Interpreted and Dictated by Oziel Millan MD Transcribed by Ewa King Authenticated and [facility]
== END 2024-12-09 23:59 | disposition home or self-care (01) ==
LOC: RAD 09:06
PROVIDERS: PCP Internal Medicine Adolescent Medicine; Visit Provider Nurse Practitioner
DX: S92.332D Displaced fracture of third metatarsal bone, left foot, subsequent encounter for fracture with routine healing (principal); S92.512D Displaced fracture of proximal phalanx of left lesser toe(s), subsequent encounter for fracture with routine healing
CPT/HCPCS: 73630